=== PATIENT | female | born 1990 | race Caucasian/White ===

== ENCOUNTER 2023-08-03 10:08 | Emergency (ER) | payer OTHER, BC, SELFPAY ==
[2023-08-03 10:09] VITALS: BP 145/100; PULSE 104; RESP 16; TEMP 36.6; O2SAT 100; BMI 39.5
--- NOTE | 2023-08-03 10:24 | EDS_ITS ---
HPI History of Present Illness Chief Complaint: Lower Extremity Injury Narrative Narrative: 32-year-old female past medical history of ADHD, tubal ligation, presents with perineal pain that feels like a muscle pull for the last few days. Initially, she thought she may have had hemorrhoids without bleeding, and was taking ibuprofen. However, yesterday she had a bowel movement and did not have pain. Her pain is worse with movement of her left leg. She states that it feels as if the muscles have shifted over to the left side. She is unsure if she has pelvic floor problem. She denies any vaginal bleeding, no dysuria, no other symptoms. PFSH PFS Home Medications cyclobenzaprine 10 mg tablet 10 mg PO TID PRN Muscle Spasm #20 TABLETS 08/03/23 [Rx Last Taken Unknown] naproxen 500 mg tablet (Naprosyn) 500 mg PO BID PRN pain #20 tabs 08/03/23 [Rx Last Taken Unknown] Allergy/AdvReac Type Severity Reaction Status Date / Time No Known Allergies Allergy Verified 08/03/23 10:09 ROS ROS ED ROS Narrative Constitutional: No fever, no chills. HEENT: No sore throat. No neck pain. No loss of vision. No rhinorrhea. Cardiovascular: No chest pain. No palpitations. No pedal edema. Respiratory: No cough, no shortness of breath. Abdominal: No abdominal pain. No nausea. No vomiting. Positive perineal pain. Genitourinary: No dysuria. No hematuria. Musculoskeletal: No myalgias. No arthralgias. Neurologic: No headaches. No dizziness. No lightheadedness. Able to stand. Skin: No rash. No change in color. Psychiatric: No depression. No anxiety. EXAM Physical Exam Narrative Exam Narrative: Afebrile. Vital signs noted. HEENT: Normocephalic. Atraumatic. PERRL, EOMI. Neck soft and supple. No point tenderness or step off. Cardiovascular: Regular rate and rhythm. No murmurs, rubs, or gallops appreciated. Respiratory: No tachypnea. Lungs clear to auscultation bilaterally. Gastrointestinal: Abdomen soft, nontender, with normoactive bowel sounds. No rebound or guarding. Genitourinary: Chaperoned examination reveals mild tenderness in the left buttocks cleft area no more towards the perineum. Neurological: Awake. Alert. Nonfocal, nonlateralizing. Skin: No rash. Normal color. No pallor. Musculoskeletal: No pedal edema. Full range of motion extremities. Const Vital Signs: 08/03/23 10:09 Temperature 98 F Temperature Source Temporal Pulse Rate 104 H Respiratory Rate 16 Blood Pressure 145/100 H Blood Pressure Mean 115 Pulse Ox 100 Oxygen Delivery Method Room Air MDM MDM MDM Narrative Medical decision making narrative: I do feel that from the history and physical she probably has more of a perineal or buttock strain. I do not feel that CT imaging is indicated. I did obtain a 1 view pelvic x-ray and interpreted it independently which shows no evidence of acute fracture or dislocation, no widening of the pubic symphysis. I reviewed the radiology report which confirms my independent interpretation. Based on her clinical examination, I do feel that she has more of a muscle strain. She was given intramuscular injections of Toradol and Norflex here and prescriptions wri tten for Flexeril and an anti-inflammatory. I do not feel that she requires narcotic pain medication, nor do I feel that she needs any laboratory work. Additionally, I feel she can be discharged to follow-up with her primary care provider. Return instructions to the emergency department were reviewed. Disposition is discharged home in stable condition. History & Record Review Discussion w/independent historian: Patient Additional record(s) reviewed:: No prior records Radiography Diagnostic Testing: Clinical Impression(s) from Imaging Studies Pelvis X-Ray 08/03/23 10:33 IMPRESSION: Normal x-ray examination of the pelvis. Electronically Signed: Arnaud Corcoran MD at 10:56 EDT , Discharge Plan Triage Chief Complaint: Lower Extremity Injury ED Provider: Alberto Ferrari Dx/Rx/DC Orders Clinical Impression: Perineal pain, Strain of left buttock Instructions: ED Pelvic Pain, Unknown Cause, ED Muscle Strain, Extremity Prescriptions: New naproxen [Naprosyn] 500 mg tablet 500 mg PO BID PRN (Reason: pain) Qty: 20 0RF cyclobenzaprine 10 mg tablet 10 mg PO TID PRN (Reason: Muscle Spasm) Qty: 20 0RF Activity Restrictions/Additional Instructions: Follow-up with your primary care provider if not improving in 7 to 10 days. Disposition Disposition: Home, Self Care
--- NOTE | 2023-08-03 10:33 | RAD_ITS ---
STUDY: X-RAY - PELVIS REASON FOR EXAM: Female, 32 years old. Pelvic pain. No known injury. TECHNIQUE: One view of the pelvis was obtained. COMPARISON: None. FINDINGS: There is a non-specific bowel gas pattern. Normal visualized soft tissue structures. Normal bilateral iliac wings, sacroiliac joints and visualized sacrum. Normal visualized bilateral superior and inferior pubic rami. Normal pubic symphysis. Normal ischial tuberosities. Normal visualized right femoral head. Normal right acetabulum. Normal right hip joint. Normal visualized left femoral head. Normal left acetabulum. Normal left hip joint. RAD/Pelvis 1 or 2 Views IMPRESSION: Normal x-ray examination of the pelvis. Electronically Signed: Arnaud Corcoran MD at 10:56 EDT ,
[2023-08-03] MEDS: Ketorolac 60 MG/2 ML Vial IM (11:01)
[2023-08-03] MEDS: Orphenadrine 60 MG/2 ML Ampul IM (11:02)
== END 2023-08-03 11:20 | disposition home or self-care (01) ==
LOC: ED 11:14
PROVIDERS: Emergency Provider Emergency Medicine; PCP Nurse Practitioner Family; Visit Provider Emergency Medicine
DX: R10.2 Pelvic and perineal pain (principal); S39.012A Strain of muscle, fascia and tendon of lower back, initial encounter; X58.XXXA Exposure to other specified factors, initial encounter
CPT/HCPCS: 72170; 96372; 99283

== ENCOUNTER 2023-08-05 16:33 | Observation (INO) | payer OTHER, BC, SELFPAY ==
[2023-08-05] VITALS (8 sets, daily range): BP systolic 98–129; BP diastolic 69–85; PULSE 82–115; RESP 14–22; TEMP 36.6–37; O2SAT 96–100; BMI 39.6; BMI 39.9
--- NOTE | 2023-08-05 16:59 | CT_ITS ---
EXAM: CT PELVIS WITH INTRAVENOUS CONTRAST CLINICAL INDICATION: Perineal pain TECHNIQUE: Helically acquired images were obtained of the pelvis with intravenous contrast. This CT exam was performed using one or more of the following dose reduction techniques: automated exposure control, adjustment of the mA and/or kV according to patient size, and/or use of iterative reconstruction technique. CONTRAST: IV 100mL Isovue-370 RADIATION DOSE: CTDIvol = 28.21 mGy, DLP = 926.37 mGy-cm COMPARISON: No relevant prior studies available. FINDINGS: BOWEL: Unremarkable as visualized. No bowel distention. No focal inflammatory change. APPENDIX: The appendix is visualized and is normal. INTRAPERITONEAL SPACE: Uterus is within normal limits. Trace free fluid in the pelvis. No free air. BLADDER: Unremarkable. REPRODUCTIVE: Unremarkable as visualized. No mass. BONES/JOINTS: Unremarkable. No suspicious lytic or blastic abnormality. SOFT TISSUES: Perianal abscess measures 35 x 25 x 31 mm. Perianal abscess extends across the midline to the right and left side. It is larger on the left side. No pelvic wall hernia. LYMPH NODES: Unremarkable. No enlarged lymph nodes. CT/Pelvis WITH IV Contrast IMPRESSION: Perianal abscess measures 35 x 25 x 31 mm. Electronically Signed: Cuong Selby MD at 17:51 EST Reading Location ID and State: [facility] / [place] , Service support ,
--- NOTE | 2023-08-05 17:01 | EDS_ITS ---
<Statement entered by Denisa Mayberry MD - 08/06/23 00:04> I have personally performed a face to face assessment of the patient and have reviewed the MARY Note. Patient presents with perineal pain. She was seen a few days ago with pain and diagnosed with a groin strain. She states in spite of the medication she was prescribed she continues to have worsening symptoms. Patient sitting upright in bed no acute distress. Heart is regular rate and rhythm. Lung sounds are clear. Abdomen is soft and nontender. Rectal examination reveals tenderness around the rectum slight fullness noted on the left. No skin changes noted. Lab work reveals mildly elevated white count. CT scan reveals a focal perianal abscess. Patient was discussed with Dr. Matthew who presented to the emergency room. He performed a bedside I&D while I performed procedural sedation with propofol. Please see procedure note for details. Patient is given IV Zosyn and admitted to the floor under Dr. Matthew's care. HPI <SYMONE Mcguire - Last Filed: 08/05/23 19:09> History of Present Illness Chief Complaint: Other, Pain/Inj Narrative Narrative: Patient is a 32-year-old female with no significant medical history who presents to the emergency department with perineal pain, lower buttock rectal pain. Patient was seen here on August 03, 2023, evaluated, diagnosed with gluteal strain and placed on naproxen, muscle relaxer. Patient states that the pain is getting much more severe. She has had difficulty passing gas. She denies any blood in her stool. Patient states that she is unable to walk, lay down and she is here for evaluation. Patient denies any fever or chills. She denies any known injury PFSH <SYMONE Mcguire - Last Filed: 08/05/23 19:09> [facility] Home Medications cyclobenzaprine 10 mg tablet 10 mg PO TID PRN Muscle Spasm #20 TABLETS 08/03/23 [Rx Last Taken Unknown] naproxen 500 mg tablet (Naprosyn) 500 mg PO BID PRN pain #20 tabs 08/03/23 [Rx Last Taken Unknown] Allergy/AdvReac Type Severity Reaction Status Date / Time No Known Allergies Allergy Verified 08/05/23 16:34 Social History Smoking Status: Never smoker ROS <SYMONE Mcguire - Last Filed: 08/05/23 19:09> ROS ED ROS Narrative Constitutional: Negative for fever, chills, weight loss, weakness Eyes: Negative for vision loss, vision change, double vision ENT: Negative for any sore throat, ear pain, congestion Cardiovascular: Negative for any chest pain, tightness, palpitations Respiratory: Negative for any cough, sputum production, hemoptysis, dyspnea, dyspnea on exertion, orthopnea Gastrointestinal: Negative for any abdominal pain, nausea, vomiting, diarrhea, constipation, blood in stool, blood in vomit : Negative for any urinary frequency, dysuria, retention, blood in urine. Positive for perineal pain, rectal pain Muscle skeletal: Negative for any myalgias, arthralgias, neck pain, back pain Neurological: Negative for any headache, syncope, numbness or tingling, dizziness Skin: Negative for any rashes, lumps, itching, abrasions, lacerations Psychiatric: Negative for any depression, anxiety, stress, suicidal ideation, homicidal ideation Hematologic: Negative for any easy bruising, excessive bruising, easy bleeding Allergies: Negative for any eczema, hives, rash EXAM <SYMONE Mcguire - Last Filed: 08/05/23 19:09> Physical Exam Narrative Exam Narrative: Vital signs reviewed. HEET: Head normocephalic atraumatic, TMs clear bilaterally. Posterior pharynx is clear, moist mucous membranes. Nares clear bilaterally. Neck: Supple with no lymphadenopathy or tenderness. No signs of meningismus. Cardiac: Regular rate and rhythm no murmurs gallops or rubs, equal peripheral pulses bilaterally. Respiratory: Lungs clear to auscultation bilaterally. No chest tenderness. Abdomen: Soft, nontender, nondistended. No abdominal bruit or pulsatile masses. No hepatosplenomegaly Extremities: No peripheral edema, no signs of gross trauma or deformity. Active full range of motion of all extremities. Neuro: Cranial nerves II through XII intact, no focal neurological deficits. Skin: Clean dry and intact with no rash, purpura, petechiae, vesicles or pustules. Backs/flank: No CVA tenderness, no midline spinal tenderness, no deformity. Psych: Normal mood and affect. No SI, HI or acute psychosis. : Rectal exam was completed with female population health coach. Around the rectum was soft, there is no evidence of any gross hemorrhoid. There is no induration, redness, erythema. Patient does have significant pain on palpation. No color change in skin, no induration, no crepitus. Const Vital Signs: 08/05/23 16:35 08/05/23 16:34 08/05/23 18:45 Temperature 98 F Temperature Source Temporal Pulse Rate 115 H 95 Pulse Rate [1 (Initial Baseline)] Pulse Rate [2] Pulse Rate [3] Pulse Rate [4] Pulse Rate [5] Respiratory Rate 20 H 18 Respiratory Rate [1 (Initial Baseline)] Respiratory Rate [2] Respiratory Rate [3] Respiratory Rate [4] Respiratory Rate [5] Respiratory Effort Normal Non-Labored Respiratory Pattern Normal Blood Pressure 110/85 H 129/84 H Blood Pressure [1 (Initial Baseline)] Blood Pressure [2] Blood Pressure [3] Blood Pressure [4] Blood Pressure [5] Blood Pressure Mean 93 Pulse Ox 100 100 Oxygen Delivery Method Room Air Room Air Oxygen Delivery Method [1 (Initial Baseline)] Oxygen Delivery Method [2] Oxygen Delivery Method [3] Oxygen Delivery Method [4] Oxygen Delivery Method [5] Oxygen Flow Rate (L/min) [4] Oxygen Flow Rate (L/min) [5] 08/05/23 18:46 08/05/23 19:00 08/05/23 19:05 Temperature Temperature Source Pulse Rate Pulse Rate [1 (Initial Baseline)] 90 Pulse Rate [2] 94 Pulse Rate [3] 92 Pulse Rate [4] 95 Pulse Rate [5] 92 Respiratory Rate Respiratory Rate [1 (Initial Baseline)] 14 Respiratory Rate [2] 17 Respiratory Rate [3] 18 Respiratory Rate [4] 22 H Respiratory Rate [5] 20 H Respiratory Effort Respiratory Pattern Blood Pressure Blood Pressure [1 (Initial Baseline)] 110/76 Blood Pressure [2] 99/69 Blood Pressure [3] 98/71 Blood Pressure [4] 102/74 Blood Pressure [5] 110/71 Blood Pressure Mean Pulse Ox Oxygen Delivery Method Room Air Room Air Oxygen Delivery Method [1 (Initial Baseline)] Room Air Oxygen Delivery Method [2] Room Air Oxygen Delivery Method [3] Room Air Oxygen Delivery Method [4] Nasal Cannula Oxygen Delivery Method [5] Nasal Cannula Oxygen Flow Rate (L/min) [4] 2 Oxygen Flow Rate (L/min) [5] 2 <Dr. Denisa Mayberry MD - Last Filed: 08/05/23 19:02> Physical Exam Const Vital Signs: 08/05/23 16:35 08/05/23 16:34 08/05/23 18:45 Temperature 98 F Temperature Source Temporal Pulse Rate 115 H 95 Pulse Rate [1 (Initial Baseline)] Pulse Rate [2] Pulse Rate [3] Pulse Rate [4] Pulse Rate [5] Respiratory Rate 20 H 18 Respiratory Rate [1 (Initial Baseline)] Respiratory Rate [2] Respiratory Rate [3] Respiratory Rate [4] Respiratory Rate [5] Respiratory Effort Normal Non-Labored Respiratory Pattern Normal Blood Pressure 110/85 H 129/84 H Blood Pressure [1 (Initial Baseline)] Blood Pressure [2] Blood Pressure [3] Blood Pressure [4] Blood Pressure [5] Blood Pressure Mean 93 Pulse Ox 100 100 Oxygen Delivery Method Room Air Room Air Oxygen Delivery Method [1 (Initial Baseline)] Oxygen Delivery Method [2] Oxygen Delivery Method [3] Oxygen Delivery Method [4] Oxygen Delivery Method [5] Oxygen Flow Rate (L/min) [4] Oxygen Flow Rate (L/min) [5] 08/05/23 18:46 08/05/23 19:00 08/05/23 19:05 Temperature Temperature Source Pulse Rate Pulse Rate [1 (Initial Baseline)] 90 Pulse Rate [2] 94 Pulse Rate [3] 92 Pulse Rate [4] 95 Pulse Rate [5] 92 Respiratory Rate Respiratory Rate [1 (Initial Baseline)] 14 Respiratory Rate [2] 17 Respiratory Rate [3] 18 Respiratory Rate [4] 22 H Respiratory Rate [5] 20 H Respiratory Effort Respiratory Pattern Blood Pressure Blood Pressure [1 (Initial Baseline)] 110/76 Blood Pressure [2] 99/69 Blood Pressure [3] 98/71 Blood Pressure [4] 102/74 Blood Pressure [5] 110/71 Blood Pressure Mean Pulse Ox Oxygen Delivery Method Room Air Room Air Oxygen Delivery Method [1 (Initial Baseline)] Room Air Oxygen Delivery Method [2] Room Air Oxygen Delivery Method [3] Room Air Oxygen Delivery Method [4] Nasal Cannula Oxygen Delivery Method [5] Nasal Cannula Oxygen Flow Rate (L/min) [4] 2 Oxygen Flow Rate (L/min) [5] 2 MDM <SYMONE Mcguire - Last Filed: 08/05/23 19:09> MDM Lab Data Labs: Laboratory Results - last 24 hr 08/05/23 08/05/23 08/05/23 17:05 17:30 18:30 WBC 15.4 H RBC 4.14 L Hgb 11.4 L Hct 35.6 L MCV 86.0 MCH 27.5 MCHC 32.0 RDW Std Deviation 38.0 RDW Coeff of Gricelda 12.1 Plt Count 361 MPV 8.8 Immature Gran % (Auto) 0.400 Neut % (Auto) 79.4 H Lymph % (Auto) 11.8 L [place] % (Auto) 7.5 Eos % (Auto) 0.5 Baso % (Auto) 0.4 Absolute Neuts (auto) 12.2 H Absolute Lymphs (auto) 1.82 Nucleated RBC % 0 Sodium 136 Potassium 3.8 Chloride 104 Carbon Dioxide 24.0 Anion Gap 8 BUN 11 Creatinine 0.69 Estim Creat Clear Calc 89.14 Est GFR (MDRD) Af Amer 126 Est GFR (MDRD) Non-Af 104 BUN/Creatinine Ratio 15.9 Glucose 100 Lactic Acid 0.8 Calcium 8.7 Urine Color Yellow Urine Clarity Sl. Cloudy Urine pH 7.0 Ur Specific [place] 1.010 Urine Protein 15 H Urine Glucose (UA) Normal Urine Ketones 15 H Urine Occult Blood 10 H Urine Nitrite Negative Urine Bilirubin Negative Urine Urobilinogen Normal Ur Leukocyte Esterase 500 H Urine RBC 0-5 SEEN Urine WBC 10-25 SEEN Ur Squamous Epith Cells 0-5 SEEN Urine Bacteria RARE Urine Mucus 0 SEEN Radiography Diagnostic Testing: Clinical Impression(s) from Imaging Studies Pelvis CT 08/05/23 16:59 IMPRESSION: Perianal abscess measures 35 x 25 x 31 mm. Electronically Signed: Cuong Selby MD at 17:51 EST , Treatment and Re-Evaluation :: Patient is in obvious distress secondary to perineal and rectal pain. Patient states has been ongoing for 6 days, is getting much worse. Differential diagnosis includes muscle strain, Coy's gangrene, rectal abscess, fissure. Patient will receive basic laboratory values, CT scan of the pelvis with IV contrast. She will be given IV fluids, IV pain medicine, Toradol, morphine, Zofran. Patient did have a tubal ligation, urinalysis will be completed concerning for any UTI. Patient's CBC shows a white blood count of 15.4. Hemoglobin 11.4, chemistries unremarkable. Patient's CT scan of the pelvis shows a perianal abscess measuri ng 35 x 25 x 31 mm. Secondary to the location of the abscess, there is only slight fullness on physical exam. We will contact surgery. Dr. Matthew evaluated the patient. He did sedate the patient and I&D the abscess. He was able to get copious amounts of drainage out. He will admit the patient for further IV antibiotic treatment. Patient was started IV Zosyn. Patient be admitted under surgery. Patient made aware, all questions answered. Patient stable for admission <Dr. Denisa Mayberry MD - Last Filed: 08/05/23 19:02> [facility] Lab Data Labs: Laboratory Results - last 24 hr 08/05/23 08/05/23 08/05/23 17:05 17:30 18:30 WBC 15.4 H RBC 4.14 L Hgb 11.4 L Hct 35.6 L MCV 86.0 MCH 27.5 MCHC 32.0 RDW Std Deviation 38.0 RDW Coeff of Gricelda 12.1 Plt Count 361 MPV 8.8 Immature Gran % (Auto) 0.400 Neut % (Auto) 79.4 H Lymph % (Auto) 11.8 L [place] % (Auto) 7.5 Eos % (Auto) 0.5 Baso % (Auto) 0.4 Absolute Neuts (auto) 12.2 H Absolute Lymphs (auto) 1.82 Nucleated RBC % 0 Sodium 136 Potassium 3.8 Chloride 104 Carbon Dioxide 24.0 Anion Gap 8 BUN 11 Creatinine 0.69 Estim Creat Clear Calc 89.14 Est GFR (MDRD) Af Amer 126 Est GFR (MDRD) Non-Af 104 BUN/Creatinine Ratio 15.9 Glucose 100 Lactic Acid 0.8 Calcium 8.7 Urine Color Yellow Urine Clarity Sl. Cloudy Urine pH 7.0 Ur Specific [place] 1.010 Urine Protein 15 H Urine Glucose (UA) Normal Urine Ketones 15 H Urine Occult Blood 10 H Urine Nitrite Negative Urine Bilirubin Negative Urine Urobilinogen Normal Ur Leukocyte Esterase 500 H Urine RBC 0-5 SEEN Urine WBC 10-25 SEEN Ur Squamous Epith Cells 0-5 SEEN Urine Bacteria RARE Urine Mucus 0 SEEN Radiography Diagnostic Testing: Clinical Impression(s) from Imaging Studies Pelvis CT 08/05/23 16:59 IMPRESSION: Perianal abscess measures 35 x 25 x 31 mm. Electronically Signed: Cuong Selby MD at 17:51 EST , Procedures <Dr. Denisa Mayberry MD - Last Filed: 08/05/23 19:02> Procedural Sedation 1 (Initial Baseline): Consent Signed: Yes Any Problems With Anesthesia: No You/Your family experience fever (hyperthermia) w/anesthesia: No Sedation medication: Propofol Dose: 200 Route: IV Total Moderate Sedation Units: 11 Maliampati Score: Class I ASA Classification: I Comment:: Patient consented for procedural sedation. A total of 200 mg of propofol was infused over separate aliquots to maintain sedation. I&D performed by Dr. Matthew, please see his procedure note for details. Discharge Plan Triage Chief Complaint: Other, Pain/Inj ED Midlevel Provider: Jose Lauren ED Provider: Denisa Mayberry Dx/Rx/DC Orders Clinical Impression: Perineal pain, Abscess, perianal Prescriptions: No Action naproxen [Naprosyn] 500 mg tablet 500 mg PO BID PRN (Reason: pain) Qty: 20 0RF cyclobenzaprine 10 mg tablet 10 mg PO TID PRN (Reason: Muscle Spasm) Qty: 20 0RF Primary Care Provider: Bridget Deng Referrals: Bridget Deng, [facility]NA[facility] [Primary Care Provider] - Disposition Disposition: Acute Care Hospital [facility]
[2023-08-05] MEDS: Ondansetron 4 MG/2 ML Vial IV (17:07)
[2023-08-05] MEDS: Ketorolac 15 MG/ML Vial IV (17:07)
[2023-08-05] MEDS: 0.9% Normal Saline (1000mL) 1,000 ML 1000 ML IV (17:07)
[2023-08-05] MEDS: Morphine 4 MG/ML Syringe IV (17:08)
[2023-08-05 17:15] LABS: Absolute Lymphocyte Count 1.82 X10^3/uL (0.83-4.51); Absolute Neutrophil Count 12.2 X10^3/uL (2.0-7.7); Basophil# 0.06 X10^3/uL; Basophil% 0.4 % (0-1); Eosinophil# 0.07 X10^3/uL; Eosinophils% 0.5 % (0-5); Hematocrit 35.6 % (37-47); Hemoglobin 11.4 g/dL (12.0-15.0); Lymphocyte # 1.82 X10^3/ul (0.83-4.51); Lymphocyte % 11.8 % (19-41); Mean Corpuscular Hgb 27.5 pg (27.0-32.0); Mean Platelet Vol. 8.8 fl (6.2-12.0); Monocyte# 1.16 X10^3/uL; Monocyte% 7.5 % (0-10); NRBC Flagged by Analyzer 0 % (0-5); Neutrophil # 12.24 X10^3/uL (2.7-7.7); Neutrophil % 79.4 % (47-70); Platelet Count 361 K/mm3 (150-450); RBC Distribution Width CV 12.1 % (11.6-14.6); Red Blood Count 4.14 M/mm3 (4.2-5.4); White Blood Count 15.4 K/mm3 (4.4-11.0)
[2023-08-05 17:23] LABS: Anion Gap 8 (5-15); BUN 11 mg/dL (7-18); BUN/Creat Ratio 15.9 RATIO (10-20); Calcium,Total 8.7 mg/dL (8.5-10.1); Chloride 104 mmol/L (98-107); Creatinine, Serum 0.69 mg/dL (0.55-1.02); EST Glomerular Filtration Rate 104 mL/min (>60); Est Glom Filt Rate - Afr Amer 126 mL/min (>60); Estimated Creatinine Clearance 89.14 ml/min; Glucose 100 mg/dL (74-106); Potassium 3.8 mmol/L (3.5-5.1); Sodium Level 136 mmol/L (136-145)
[2023-08-05 18:16] LABS: Lactic Acid 0.8 mmol/L (0.4-1.9)
[2023-08-05 18:38] LABS: Mucous, Urine 0 SEEN /hpf (<or=2+)
[2023-08-05 18:41] LABS: Color, Urine Yellow (Yellow); Glucose, Dipstick Normal (Normal); Ketone-Dipstick 15 mg/dl (Negative); Leukocyte Esterase-Dipstick 500 /ul (Negative); Nitrite-Dipstick Negative (Negative); Occult Blood-Urine 10 /ul (Negative); Protein-Dipstick 15 mg/dl (Negative); Urine Bilirubin Dipstick Negative (Negative); Urine Clarity Sl. Cloudy (Clear); Urine Urobilinogen Normal (Normal)
[2023-08-05 18:51] LABS: Bacteria RARE /hpf (None Seen); Red Blood Cells-Urine 0-5 SEEN /hpf (0-5); Squamous Epithelial Cells - UA 0-5 SEEN /hpf (5-10); White Blood Cells 10-25 SEEN /hpf (0-5)
[2023-08-05] MEDS: Propofol 200 MG/20 ML Vial IV BOLUS (19:02)
--- NOTE | 2023-08-05 19:02 | HP.PCM.SX_ITS ---
HPI - General HPI Narrative JOSÉ MIGUEL ENCINAS, is a 32 F who presents with perirectal pain. She says it is been going on since this past Sunday. She denies fevers or chills. Patient says it has been difficult to pass gas lately. She has never had a perirectal abscess in the past. PFSH Home Medications cyclobenzaprine 10 mg tablet 10 mg PO TID PRN Muscle Spasm #20 TABLETS 08/03/23 [Rx Last Taken Unknown] naproxen 500 mg tablet (Naprosyn) 500 mg PO BID PRN pain #20 tabs 08/03/23 [Rx Last Taken Unknown] Allergy/AdvReac Type Severity Reaction Status Date / Time No Known Allergies Allergy Verified 08/05/23 16:34 Social History Smoking Status: Never smoker ROS Constitutional Constitutional: Denies anorexia, chills or fatigue Eyes Eyes: Denies blurry vision ENT HEENT: Denies abnormal hearing Cardiovascular Cardiovascular: Denies chest pain Respiratory/Chest Respiratory/Chest: Denies cough Gastrointestinal Gastrointestinal: Denies abdominal pain Genitourinary Genitourinary: Denies change in urinary stream Musculoskeletal Musculoskeletal: Denies abnormal gait Integumentary Integumentary: Denies jaundice Neurologic Neurologic: Denies abnormal gait Psychiatric Psychiatric: Denies anxiety Endocrine Endocrinology: Denies flushing Vital Signs Vital Signs Vital Signs: 08/05/23 16:35 08/05/23 16:34 08/05/23 18:45 Temperature 98 F Temperature Source Temporal Pulse Rate 115 H 95 Pulse Rate [1 (Initial Baseline)] Pulse Rate [2] Pulse Rate [3] Pulse Rate [4] Pulse Rate [5] Respiratory Rate 20 H 18 Respiratory Rate [1 (Initial Baseline)] Respiratory Rate [2] Respiratory Rate [3] Respiratory Rate [4] Respiratory Rate [5] Respiratory Effort Normal Non-Labored Respiratory Pattern Normal Blood Pressure 110/85 H 129/84 H Blood Pressure [1 (Initial Baseline)] Blood Pressure [2] Blood Pressure [3] Blood Pressure [4] Blood Pressure [5] Blood Pressure Mean 93 Pulse Ox 100 100 Oxygen Delivery Method Room Air Room Air Oxygen Delivery Method [1 (Initial Baseline)] Oxygen Delivery Method [2] Oxygen Delivery Method [3] Oxygen Delivery Method [4] Oxygen Delivery Method [5] Oxygen Flow Rate (L/min) [4] Oxygen Flow Rate (L/min) [5] 08/05/23 18:46 08/05/23 19:00 Temperature Temperature Source Pulse Rate Pulse Rate [1 (Initial Baseline)] 90 Pulse Rate [2] 94 Pulse Rate [3] 92 Pulse Rate [4] 95 Pulse Rate [5] 92 Respiratory Rate Respiratory Rate [1 (Initial Baseline)] 14 Respiratory Rate [2] 17 Respiratory Rate [3] 18 Respiratory Rate [4] 22 H Respiratory Rate [5] 20 H Respiratory Effort Respiratory Pattern Blood Pressure Blood Pressure [1 (Initial Baseline)] 110/76 Blood Pressure [2] 99/69 Blood Pressure [3] 98/71 Blood Pressure [4] 102/74 Blood Pressure [5] 110/71 Blood Pressure Mean Pulse Ox Oxygen Delivery Method Room Air Oxygen Delivery Method [1 (Initial Baseline)] Room Air Oxygen Delivery Method [2] Room Air Oxygen Delivery Method [3] Room Air Oxygen Delivery Method [4] Nasal Cannula Oxygen Delivery Method [5] Nasal Cannula Oxygen Flow Rate (L/min) [4] 2 Oxygen Flow Rate (L/min) [5] 2 Weight Weight: 210 lb 3.2 oz Body Mass Index (BMI) 39.6 Physical Exam Const oriented x3 and no apparent distress Resp normal respiratory effort Cardio regular rate and regular rhythm GI soft to palpation and non-tender GI Narrative: Patient does have a perirectal abscess with fluctuance and pain on the left side Extremity normal to inspection Results Lab / Micro Data 08/05/23 17:05 08/05/23 17:05 Labs: Laboratory Results - last 24 hr 08/05/23 17:05: WBC 15.4 H, RBC 4.14 L, Hgb 11.4 L, Hct 35.6 L, MCV 86.0, MCH 27.5, MCHC 32.0, RDW Std Deviation 38.0, RDW Coeff of Gricelda 12.1, Plt Count 361, MPV 8.8, Immature Gran % (Auto) 0.400, Neut % (Auto) 79.4 H, Lymph % (Auto) 11.8 L, Jay % (Auto) 7.5, Eos % (Auto) 0.5, Baso % (Auto) 0.4, Absolute Neuts (auto) 12.2 H, Absolute Lymphs (auto) 1.82, Nucleated RBC % 0, Sodium 136, Potassium 3.8, Chloride 104, Carbon Dioxide 24.0, Anion Gap 8, BUN 11, C reatinine 0.69, Estim Creat Clear Calc 89.14, Est GFR (MDRD) Af Amer 126, Est GFR (MDRD) Non-Af 104, BUN/Creatinine Ratio 15.9, Glucose 100, Calcium 8.7 08/05/23 17:30: Lactic Acid 0.8 08/05/23 18:30: Urine Color Yellow, Urine Clarity Sl. Cloudy, Urine pH 7.0, Ur Specific [place] 1.010, Urine Protein 15 H, Urine Glucose (UA) Normal, Urine Ketones 15 H, Urine Occult Blood 10 H, Urine Nitrite Negative, Urine Bilirubin Negative, Urine Urobilinogen Normal, Ur Leukocyte Esterase 500 H, Urine RBC 0-5 SEEN, Urine WBC 10-25 SEEN, Ur Squamous Epith Cells 0-5 SEEN, Urine Bacteria RARE, Urine Mucus 0 SEEN Radiology Impression Pelvis CT 08/05/23 16:59 IMPRESSION: Perianal abscess measures 35 x 25 x 31 mm. Electronically Signed: Cuong Selby MD at 17:51 EST Reading Location ID and State: [facility] / [place] , Service support , Assessment & Plan Assessment/Plan (1) Perirectal abscess: PLAN: The patient had a CT scan that shows a perirectal abscess. I discussed this with the patient in detail. I discussed drainage of the abscess and the risks including but not limited to bleeding, infection, need for further drainage. I explained that I would drain the abscess and pack it and after obtaining signed consent I performed an incision and drainage in the emergency room under conscious sedation provided by the emergency room physician. The abscess was drained and there was copious purulent output from the abscess. I believe I fully drain the abscess as there was a very large amount of drainage. The abscess was irrigated and packed and cultures were sent. Patient will be admitted to the floor and started on IV antibiotics. She may have a regular diet. I explained that if anything worsen or this did not resolve quickly I would take her to the operating room for a more formal drainage and debridement and patient understands. Lebron Matthew MD Pager: [facility] [address] [place] [address], [address] [place] [address] Office:
[2023-08-05] MEDS: Piperacil/Tazobactam 3.375 GM in 0.9% Normal Saline (50mL MB+) 50 ML IV (19:04)
--- NOTE | 2023-08-05 19:05 | PCM.OPRPT ---
Report of Operation Date of Procedure: 08/05/23 Pre-Operative Diagnosis: Perirectal abscess Post-Operative Diagnosis: Same Surgery/Procedure Performed:: Incision and drainage of perirectal abscess with packing Type of Anesthesia: Local MAC Specimen's removed: Culture of fluid Estimated Blood Loss (mL): 5 Description of Procedure: After conscious sedation was initiated the patient's left perirectal area was prepped and draped. It was injected with local anesthetic and then a small incision was made with an 11 blade scalpel. There was immediate return of copious purulent output. The cavities contents were cultured. After expressing as much purulent material as possible and breaking down loculations with a hemostat the cavity was irrigated copiously with saline and then packed with half-inch iodoform gauze. Patient tolerated the procedure well. The patient will be admitted to the floor post procedurally.
[2023-08-05] MEDS: 0.9% Normal Saline (1000mL) 1,000 ML 60 ML IV (20:35)
[2023-08-06 00:16] VITALS: BP 99/63; PULSE 94; RESP 16; TEMP 36.5; O2SAT 100
[2023-08-06 04:30] VITALS: BP 102/69; PULSE 82; RESP 16; TEMP 36.7; O2SAT 100
[2023-08-06] MEDS: 0.9% Normal Saline (250mL Bag) 250 ML 15 ML IV (06:31)
[2023-08-06] MEDS: Piperacil/Tazobactam 3.375 GM in 0.9% Normal Saline (50mL MB+) 50 ML IV (06:31)
[2023-08-06] MEDS: 0.9% Normal Saline (1000mL) 1,000 ML 60 ML IV (06:31)
[2023-08-06 06:47] LABS: Absolute Lymphocyte Count 1.83 X10^3/uL (0.83-4.51); Absolute Neutrophil Count 7.8 X10^3/uL (2.0-7.7); Basophil# 0.03 X10^3/uL; Basophil% 0.3 % (0-1); Eosinophil# 0.12 X10^3/uL; Eosinophils% 1.1 % (0-5); Hematocrit 30.9 % (37-47); Lymphocyte # 1.83 X10^3/ul (0.83-4.51); Lymphocyte % 17.2 % (19-41); Mean Corp Hgb Conc 32.4 g/dL (32-36); Mean Corpuscular Hgb 28.1 pg (27.0-32.0); Mean Corpuscular Volume 86.8 fL (81-99); Monocyte% 7.5 % (0-10); NRBC Flagged by Analyzer 0 % (0-5); Neutrophil # 7.77 X10^3/uL (2.7-7.7); Neutrophil % 73.3 % (47-70); Platelet Count 343 K/mm3 (150-450); RBC Distribution Width CV 12.2 % (11.6-14.6); RBC Distribution Width SD 39.5 fl (35.1-43.9); Red Blood Count 3.56 M/mm3 (4.2-5.4); White Blood Count 10.6 K/mm3 (4.4-11.0)
[2023-08-06 07:23] LABS: Anion Gap 5 (5-15); BUN 12 mg/dL (7-18); BUN/Creat Ratio 18.3 RATIO (10-20); Calcium,Total 8.2 mg/dL (8.5-10.1); Chloride 110 mmol/L (98-107); Creatinine, Serum 0.66 mg/dL (0.55-1.02); EST Glomerular Filtration Rate 111 mL/min (>60); Est Glom Filt Rate - Afr Amer 134 mL/min (>60); Glucose 104 mg/dL (74-106); Potassium 3.9 mmol/L (3.5-5.1); Sodium Level 140 mmol/L (136-145)
[2023-08-06 08:17] VITALS: BP 109/74; PULSE 91; RESP 16; TEMP 36.9; O2SAT 100
--- NOTE | 2023-08-06 10:25 | DS.PCM_ITS ---
Providers Date of Admission: 08/05/23 Primary Care Physician: Bridget Deng [employer] Reason For Visit: PERIIRECTAL ABSCESS Diagnosis Discharge Diagnosis (1) Perirectal abscess: Status: Acute Code(s): K61.1 - Rectal abscess Plan: The patient had a CT scan that shows a perirectal abscess. I discussed this with the patient in detail. I discussed drainage of the abscess and the risks including but not limited to bleeding, infection, need for further drainage. I explained that I would drain the abscess and pack it and after obtaining signed consent I performed an incision and drainage in the emergency room under conscious sedation provided by the emergency room physician. The abscess was drained and there was copious purulent output from the abscess. I believe I fully drain the abscess as there was a very large amount of drainage. The abscess was irrigated and packed and cultures were sent. Patient will be admitted to the floor and started on IV antibiotics. She may have a regular diet. I explained that if anything worsen or this did not resolve quickly I would take her to the operating room for a more formal drainage and debridement and patient understands. Lebron Matthew MD Pager: [facility] [address] [place] [address], [address] [place] [address] Office: Medications at Discharge Home Medications cyclobenzaprine 10 mg tablet 10 mg PO TID PRN Muscle Spasm #20 TABLETS 08/03/23 naproxen 500 mg tablet (Naprosyn) 500 mg PO BID PRN pain #20 tabs 08/03/23 acetaminophen 325 mg tablet 650 mg (2 x 325 mg) PO Q4H PRN PRN Pain 1-10 Or Fever #0 tabs 08/06/23 ciprofloxacin HCl 500 mg tablet (Cipro) 500 mg PO BID 10 days #20 tabs 08/06/23 metronidazole 500 mg tablet 500 mg PO Q8H 10 days #30 tabs 08/06/23 oxycodone 5 mg tablet 5 - 10 mg (1 - 2 x 5 mg) PO Q4H PRN PRN Pain Score 4-10 5 days #20 tabs 08/06/23 Hospital Course Summary of Care Provided Hospital Course: Patient presents to the emergency room with a perirectal abscess. Under conscious sedation this was drained in the emergency room and packed. The patient was then admitted and put on IV antibiotics for the night. The patient's packing was removed this morning and the patient showered and then the area was repacked and the patient's was taught how to pack the abscess area. The patient will be discharged home on oral antibiotics and change the dressing and packing daily and follow-up with me in a week. If there is any worsening in the meantime she will call our office. Physical Exam Const oriented x3 and no apparent distress Resp normal respiratory effort GI soft to palpation and non-tender Inspection: Negative for abdominal distention Weight / BMI Weight Weight: 210 lb 15.718 oz Body Mass Index (BMI) 39.9 ABG / Lab / Microbiology Data 08/06/23 05:30 08/06/23 05:30 Laboratory: Laboratory Results - last 24 hr 08/05/23 17:05: WBC 15.4 H, RBC 4.14 L, Hgb 11.4 L, Hct 35.6 L, MCV 86.0, MCH 27.5, MCHC 32.0, RDW Std Deviation 38.0, RDW Coeff of Gricelda 12.1, Plt Count 361, MPV 8.8, Immature Gran % (Auto) 0.400, Neut % (Auto) 79.4 H, Lymph % (Auto) 11.8 L, [place] % (Auto) 7.5, Eos % (Auto) 0.5, Baso % (Auto) 0.4, Absolute Neuts (auto) 12.2 H, Absolute Lymphs (auto) 1.82, Nucleated RBC % 0, Sodium 136, Potassium 3 .8, Chloride 104, Carbon Dioxide 24.0, Anion Gap 8, BUN 11, Creatinine 0.69, Estim Creat Clear Calc 89.14, Est GFR (MDRD) Af Amer 126, Est GFR (MDRD) Non-Af 104, BUN/Creatinine Ratio 15.9, Glucose 100, Calcium 8.7 08/05/23 17:30: Lactic Acid 0.8 08/05/23 18:30: Urine Color Yellow, Urine Clarity Sl. Cloudy, Urine pH 7.0, Ur Specific [place] 1.010, Urine Protein 15 H, Urine Glucose (UA) Normal, Urine Ketones 15 H, Urine Occult Blood 10 H, Urine Nitrite Negative, Urine Bilirubin Negative, Urine Urobilinogen Normal, Ur Leukocyte Esterase 500 H, Urine RBC 0-5 SEEN, Urine WBC 10-25 SEEN, Ur Squamous Epith Cells 0-5 SEEN, Urine Bacteria RARE, Urine Mucus 0 SEEN 08/06/23 05:30: WBC 10.6, RBC 3.56 L, Hgb 10.0 L, Hct 30.9 L, MCV 86.8, MCH 28.1, MCHC 32.4, RDW Std Deviation 39.5, RDW Coeff of Gricelda 12.2, Plt Count 343, MPV 9.0, Immature Gran % (Auto) 0.600, Neut % (Auto) 73.3 H, Lymph % (Auto) 17.2 L, [place] % (Auto) 7.5, Eos % (Auto) 1.1, Baso % (Auto) 0.3, Absolute Neuts (auto) 7.8 H, Absolute Lymphs (auto) 1.83, Nucleated RBC % 0, Sodium 140, Potassium 3.9, Chloride 110 H, Carbon Dioxide 25.0, Anion Gap 5, BUN 12, Creatinine 0.66, Estim Creat Clear Calc 93.20, Est GFR (MDRD) Af Amer 134, Est GFR (MDRD) Non-Af 111, BUN/Creatinine Ratio 18.3, Glucose 104, Calcium 8.2 L Radiography Diagnostic Testing: Radiology Impression Pelvis CT 08/05/23 16:59 IMPRESSION: Perianal abscess measures 35 x 25 x 31 mm. Electronically Signed: Cuong Selby MD at 17:51 EST Reading Location ID and State: [facility] / [place] , Service support , D/C Instructions Discharge Diet: Light diet - advance as tolerated Discharge Activity: Return to Normal Activity, May Not Drive (While on narcotics), May Shower and May Take a Tub Bath Call your doctor if your incision/area has: Continuous Slow Oozing, Sudden Increased Bleeding, Increased Pain/ Swelling, Increased Redness, Foul Smelling Discharge and Swelling at the incision site Call your doctor if you observe: Fever of 101 or Higher Change Dressing in: 1 day (Change packing 1-2 times per day. Change dressing over the packing as needed.) Cleanse incision/area with: Soap & Water Please Follow Up With: Lebron Matthew MD When: Please call to schedule 1 week follow up appointment. [phone] Meaningful Use Info Meaningful Use Diagnoses (Choose all that apply): None applicable Discharge Plan Admission Admit Date/Time: 08/05/23 18:59 Attending Provider: Lebron Matthew Primary Care Provider: Bridget Deng Instructions Additional Instructions / Restrictions: Alternate ibuprofen and Tylenol for pain, oxycodone for breakthrough. Change the packing in the incision 1-2 times per day. Follow-up with me in 1 week. Discharge Orders/Prescriptions Prescriptions: New acetaminophen 325 mg Tablet 650 mg PO Q4H PRN PRN (Reason: Pain 1-10 Or Fever) Qty: 0 0RF oxycodone 5 mg Tablet 5 - 10 mg PO Q4H PRN PRN (Reason: Pain Score 4-10) 5 Days Qty: 20 0RF ciprofloxacin HCl [Cipro] 500 mg tablet 500 mg PO BID 10 Days Qty: 20 0RF metronidazole 500 mg tablet 500 mg PO Q8H 10 Days Qty: 30 0RF Continued naproxen [Naprosyn] 500 mg tablet 500 mg PO BID PRN (Reason: pain) Qty: 20 0RF cyclobenzaprine 10 mg tablet 10 mg PO TID PRN (Reason: Muscle Spasm) Qty: 20 0RF Referrals / Follow Up: Bridget Deng, [employer] [Primary Care Provider] - Disposition Disposition (needs filled in before D/C Order can be placed): Home, Self Care
--- NOTE | 2023-08-06 11:00 | CASEMGMT ---
MURALI QUINTANA Assessment: Face to Face with pt for initial transition planning/care coordination assessment. RN LILIAN introduced self and role at [facility], pt voices understanding and consents to assessment. Pt is A&O x4 and answers all questions appropriately at this time. Pt sitting up on edge of bed with visitor and children at bedside. Pt agreeable to assessment with visitors present. Care providers, pharmacy, and demographics verified/updated. Admitting Dx:perirectal abscess PCP:Ish, pt has an upcoming appt but has not established yet Specialists:Denies Preferred Pharmacy:[facility] Retail Insurance:[employer] Prescription Benefit: yes LNOK:Reji Wise, Living Arrangements: Pt lives with and children in an apt with 14 steps to enter. Pt reports she is I in ADL's and denies concerns at home. Transportation: Pt drives self and denies concerns with transportation. DME:Denies HHC/SNF:Denies hx of Pt states no concerns with going home at time of dc. Pt states her was taught the dressing change this morning and he is capable of performing at home. Pt states no further concerns/needs. CM to follow. Advised pt to ask CM if any further question/concerns/needs arise, voices understanding. Pt Goal:Home Plan:Home with performing dressing changes
== END 2023-08-06 11:21 | disposition home or self-care (01) ==
LOC: ED 19:09 → MS3 19:24
PROVIDERS: Nurse Practitioner; Admitting Provider Surgery; Emergency Provider Emergency Medicine; PCP Nurse Practitioner Family; Visit Provider Surgery
DX: K61.1 Rectal abscess (principal)
CPT/HCPCS: 46040; 36415; 46050; 72193; 80048; 81001; 83605; 85025; 87070; 87075; 87077; 87186; 87205; 96365; 96366; 96375; 99156; 99221; 99285; J7030; J7050; Q9967; A4216; G0378; J2405

== ENCOUNTER 2023-12-11 12:35 | Emergency (ER) | payer BC, SELFPAY ==
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
== END 2023-12-11 14:56 | disposition home or self-care (01) ==
LOC: ED 18:00
PROVIDERS: Emergency Provider Emergency Medicine; PCP Nurse Practitioner Family; Visit Provider Emergency Medicine
DX: S81.011A Laceration without foreign body, right knee, initial encounter (principal); V49.40XA Driver injured in collision with unspecified motor vehicles in traffic accident, initial encounter; Z23 Encounter for immunization
CPT/HCPCS: 12002; 90471; 90715; 99284